=== PATIENT | male | born 1945 | race Caucasian/White ===

== ENCOUNTER 2024-04-26 14:04 | Inpatient (IN) ==
[2024-04-26] MEDS: HYDROmorphone 1 MG/ML SYRINGE IV ONE (14:49)
[2024-04-26] MEDS: KETOROLAC 30 MG/ML VIAL IV ONE (14:49)
[2024-04-26 15:18] LABS: Basophils # (Auto) 0.04 K/mcL (0.00-0.30); Basophils % (Auto) 0.5 % (0.0-2.0); Eosinophils # (Auto) 0.39 K/mcL (0.00-0.70); Eosinophils % (Auto) 4.5 % (0.0-7.0); Hematocrit 41.3 % (40.1-51.0); Hemoglobin 13.3 g/dL (13.7-17.5); Lymphocytes # (Auto) 1.85 K/mcL (1.50-4.80); Lymphocytes % (Auto) 21.3 % (15.5-49.0); Mean Cell Volume 98.8 fL (80.0-100.0); Mean Corpuscular HGB Conc 32.2 g/dL (31.0-36.0); Mean Platelet Volume 9.2 fL (8.8-12.5); Monocytes # (Auto) 0.64 K/mcL (0.10-0.90); Monocytes % (Auto) 7.4 % (1.0-12.0); Neutrophils % (Auto) 66.2 % (38.0-78.0); Platelet Count 259 K/mcL (140-440); RBC 4.18 M/mcL (4.63-6.08); Red Cell Distribution Width 13.8 % (11.5-14.5); WBC 8.7 K/mcL (4.5-11.0)
[2024-04-26 15:31] LABS: Blood Urea Nitrogen 17 mg/dL (8-23); Calcium 9.3 mg/dL (8.6-10.4); Carbon Dioxide 22 mmol/L (22-30); Chloride 101 mmol/L (96-108); Glomerular Filtration Rate 71; Glucose 98 mg/dL (70-105); Potassium 4.1 mmol/L (3.3-5.1); Sodium 136 mmol/L (133-145)
[2024-04-26 15:42] LABS: Appearance,Urine Clear (Clear); Bilirubin,Urine Negative (Negative); Color,Urine Yellow; Glucose,Urine (UA) Negative (Negative); Ketones,Urine Negative (Negative); Leukocyte Esterase,Urine Negative /uL (Negative); Nitrate,Urine Negative (Negative); Protein,Urine Negative (Negative); Urine Blood Negative ery/mcL (Negative); Urine RBC 0 /hpf (0-3); Urine Squamous Epithelial Cell 0 /hpf (0-4); Urine WBC 0 /hpf (0-4); Urobilinogen,Urine Normal
[2024-04-26] MEDS ORDERED: ZOLPIDEM 5 MG TABLET PO PRN (17:04)
[2024-04-26] MEDS ORDERED: IPRATROPIUM/ALBUTEROL 3 ML AMPUL.NEB NEB PRN (17:04)
[2024-04-26] MEDS ORDERED: ONDANSETRON 4 MG/2 ML VIAL IV PRN (17:04)
[2024-04-26] MEDS: HYDROmorphone 1 MG/ML SYRINGE IV PRN (17:23)
[2024-04-26] MEDS: ACETAMINOPHEN 325 MG TABLET PO PRN (20:34)
[2024-04-26] MEDS: SENNOSIDES 1 TABLET PO SCH (20:34)
[2024-04-26] MEDS: DOCUSATE SODIUM 100 MG CAPSULE PO SCH (20:34)
[2024-04-26] MEDS: 0.9 % SODIUM CHLORIDE 10 ML SYRINGE IV SCH (20:35)
[2024-04-27] MEDS: KETOROLAC 30 MG/ML VIAL IV PRN (01:27)
[2024-04-27] MEDS: oxyCODONE/APAP 5/325MG TABLET PO PRN (05:30)
[2024-04-27] MEDS ORDERED: NITROGLYCERIN 0.4 MG TAB.SUBL SL PRN (09:21)
[2024-04-27] MEDS: LIDOCAINE 4% TOP PATCH TOPICAL SCH (10:19)
[2024-04-27] MEDS ORDERED: LORazepam 0.5 MG TABLET PO PRN (17:56)
[2024-04-27] MEDS: ATORVASTATIN 40 MG TABLET PO SCH (20:22)
[2024-04-27] MEDS: PRAMIPEXOLE 0.25 MG TABLET PO SCH (20:22)
[2024-04-27] MEDS: MONTELUKAST 10 MG TABLET PO SCH (20:22)
[2024-04-27] MEDS: METOPROLOL TARTRATE 25 MG TABLET PO SCH (20:22)
[2024-04-27] MEDS: COLCHICINE 0.6 MG CAPSULE PO SCH (20:27)
[2024-04-28] MEDS: TAMSULOSIN 0.4 MG CAPSULE PO SCH (08:30)
[2024-04-28] MEDS: FINASTERIDE 5 MG TABLET PO SCH (08:30)
[2024-04-28] MEDS: FUROSEMIDE 20 MG TABLET PO SCH (08:30)
[2024-04-28] MEDS: FLUoxetine HCL 20 MG CAPSULE PO SCH (08:30)
[2024-04-28] MEDS: LOPERAMIDE 2 MG CAPSULE PO PRN (09:18)
[2024-04-28] MEDS: morphine 15 MG TAB.SR.12H PO SCH (09:18)
[2024-04-28] MEDS: ACETAMINOPHEN 325 MG TABLET PO SCH ×2 (21:29→21:48)
[2024-04-28] MEDS: ACETAMINOPHEN 325 MG TABLET PO ONE (21:30)
[2024-04-30 10:26] VITALS: TEMP 97.3; O2SAT 96
== END 2024-04-30 11:05 | DRG 561 ==
LOC: ED 14:04 → MEDSUR 14:04 → INTOOBSV 17:07 → OBSVTOIN 17:07 → MEDSUR 17:22
PROVIDERS: ADMIT Internal Medicine; ATTEND Internal Medicine